=== PATIENT | male | born 1995 | race Caucasian/White ===

== ENCOUNTER 2021-06-24 01:15 | Emergency (ER) | payer OTHER ==
[~2021-06-24] VITALS: Ht 177.8 cm; Wt 120.8 kg
[2021-06-24 04:59] LABS: BASO % 0.4 % (0.0-1.0); EOS % 0.2 % (0.0-3.0); HEMATOCRIT 50.6 % (42.0-52.0); HEMOGLOBIN 17.8 g/dl (13.5-17.5); LYMPH # 0.2 10^3/uL (1.5-5.0); LYMPH % 3.4 % (24.0-44.0); MEAN CORPUSCULAR HEMOGLOBIN 31.2 pg (27.0-33.0); MEAN CORPUSCULAR HGB CONC 35.2 g/dl (32.0-36.5); MEAN CORPUSCULAR VOLUME 88.6 fl (80.0-96.0); MONO # 0.5 10^3/uL (0.0-0.8); MONO % 9.2 % (2.0-8.0); NEUTROPHILS # 4.9 10^3/uL (1.5-8.5); NEUTROPHILS % 86.1 % (36.0-66.0); PLATELET COUNT, AUTOMATED 314 10^3/uL (150-450); RED BLOOD COUNT 5.71 10^6/uL (4.30-6.10); WHITE BLOOD COUNT 5.7 10^3/uL (4.0-10.0)
[2021-06-24 05:22] LABS: ALBUMIN 4.1 GM/DL (3.2-5.2); ALT/SGPT 28 U/L (12-78); BILIRUBIN,DIRECT 0.2 MG/DL (0.0-0.2); BILIRUBIN,TOTAL 0.7 MG/DL (0.2-1.0); BLOOD UREA NITROGEN 26 MG/DL (7-18); CARBON DIOXIDE LEVEL 26 MEQ/L (21-32); CHLORIDE LEVEL 106 MEQ/L (98-107); CREATININE FOR GFR 1.35 MG/DL (0.70-1.30); GLOMERULAR FILTRATION RATE > 60.0 (>60); GLUCOSE, FASTING 127 MG/DL (70-100); LIPASE 45 U/L (73-393); POTASSIUM SERUM 4.4 MEQ/L (3.5-5.1); SODIUM LEVEL 139 MEQ/L (136-145); TOTAL PROTEIN 7.7 GM/DL (6.4-8.2)
[2021-06-24] MEDS ORDERED: KETOROLAC 30 MG/ML 1ML VIAL IV ONE (07:25)
[2021-06-24] MEDS ORDERED: NS 1,000 ML IV ONE (07:25)
[2021-06-24] MEDS ORDERED: ONDANSETRON 4MG/2ML VIAL IV ONE (07:25)
[2021-06-24] MEDS ORDERED: ACETAMINOPHEN 325 MG TAB PO ONE (08:15)
[2021-06-24 10:07] VITALS: BP 127/58
[2021-06-24] MEDS ORDERED: ONDA4TAB6 PO (10:09)
== END 2021-06-24 10:32 | disposition home or self-care (01) ==
LOC: M ED 01:15
DX: R11.2 Nausea with vomiting, unspecified (principal); R19.7 Diarrhea, unspecified
CPT/HCPCS: 36415; 80048; 80076; 83605; 83690; 85025; 87505; 96361; 96374; 96375; 99284; J1885; J2405